=== PATIENT | female | born 1935 | race Caucasian/White ===

== ENCOUNTER → 2017-10-02 | Outpatient (CLI) | payer MEDICARE, OTHER ==
[~2017-10-02] MED LIST: ASPIRIN81 M3 PO; CALM MAG SUPPLEMENT PO; D-MANNOSE PO; MAGNESIUM250 MG PO; METROGEL60 GM TP; PROBIOTIC & AC1 EACH PO; RESTASIS1 EACH OP; VITAMIN B-121000 MCG PO; VITAMIN C PO; Z ACIDOPHILUS PO; Z CRANBERRY PO; Z NIACIN PO; Z.0.CALTRATE 600 W1 PO; Z.0.CELEXA20 MG PO; Z.0.EVISTA60 MG PO; Z.0.LEVOXYL25 MCG PO; Z.0.MACROBID 100 M10 PO; Z.0.MULTIVITAMINS1 E; Z.0.VESICARE5 MG PO; Z.6.FISH OIL 1,0001 PO
--- NOTE | 2017-10-02 10:49 | Diagnostic Imaging Report ---
PROCEDURE:X-RAY FACIAL BONES, COMPLETE COMPARISON:None. INDICATIONS:FALL, RIGHT EYE BRUISED , SWOLLEN MONDAY FINDINGS: No acute, displaced fracture or dislocation. No paranasal sinus opacification or air-fluid levels. Mastoid air cells are well aerated. Extensive dental hardware. CONCLUSION: no displaced fracture or paranasal sinus air fluid levels. Maxillofacial CT is more sensitive for detection of occult fractures and is suggested for further evaluation if clinically warranted. Dictated by: Gavin Yeboah M.D. on 10/02/2017 at 10:50 Electronically approved by: Gavin Yeboah M.D. on 10/02/2017 at 10:50
--- NOTE | 2017-10-02 10:51 | Diagnostic Imaging Report ---
PROCEDURE:X-RAY RIGHT WRIST, COMPLETE COMPARISON:None. INDICATIONS:FALL MONDAY, RIGHT WRIST PAIN FINDINGS: No acute, displaced fracture or dislocation. Appropriate alignment between the distal radius, lunate, and capitate is maintained on the lateral radiograph. Joint spaces are well-maintained. Soft tissues unremarkable. CONCLUSION: No acute osseous abnormality. Dictated by: Gavin Yeboah M.D. on 10/02/2017 at 10:52 Electronically approved by: Gavin Yeboah M.D. on 10/02/2017 at 10:52
== END ==
LOC: RAD 09:59
PROVIDERS: ATTEND Family Medicine
DX: G89.11 Acute pain due to trauma (principal); Z91.81 History of falling
CPT/HCPCS: 70150

== ENCOUNTER → 2018-02-16 | Outpatient (RCR) | payer MEDICARE, OTHER | LOC: PT 01-17 13:07 | PROVIDERS: ATTEND Specialist | DX: M70.62 Trochanteric bursitis, left hip (principal); M62.81 Muscle weakness (generalized) | CPT/HCPCS: 97110 ×13; 97162; G8981 ×2; G8982 ×2 ==

== ENCOUNTER 2018-02-23 09:00 | Outpatient (RCR) | payer MEDICARE, OTHER | END 2018-03-18 | LOC: PT 09:00 | PROVIDERS: ATTEND Specialist | DX: M70.62 Trochanteric bursitis, left hip (principal); M62.81 Muscle weakness (generalized) ==

== ENCOUNTER → 2018-09-18 | Outpatient (CLI) | payer MEDICARE, OTHER ==
--- NOTE | 2018-09-18 15:07 | Diagnostic Imaging Report ---
Exam: Right hand 3 views History: Right hand pain Comparison: None. Findings: The bones are diffusely osteopenic. No acute, displaced fracture or dislocation. Appropriate alignment between the distal radius, lunate, and capitate is maintained on the lateral radiograph. Scattered foci of joint space narrowing and marginal osteophytosis involving the interphalangeal joints. Soft tissues are unremarkable. Impression: No acute osseous abnormality. Signed by: Dr. Gavin Yeboah M.D. on 09/18/2018 3:04 PM
--- NOTE | 2018-09-18 15:11 | Diagnostic Imaging Report ---
Examination: Single AP view of the chest. Left rib radiographs. COMPARISON: None. INDICATION: Pleural pain DISCUSSION: Chest: The lungs are well-inflated and without focal consolidation, pleural effusion, or pneumothorax. Tortuous thoracic aorta with atherosclerotic calcification. Normal heart size without overt pulmonary edema. 8 mm noncalcified nodule in the left midlung. Ribs: No displaced rib fracture or osseous destructive lesions. IMPRESSION: No displaced rib fracture or pneumothorax. 8 mm left midlung pulmonary nodule should be further evaluated by CT scan of the chest without contrast in the absence of prior chest radiographs for comparison purposes. Signed by: Dr. Gavin Yeboah M.D. on 09/18/2018 3:07 PM
--- NOTE | 2018-09-18 15:13 | Diagnostic Imaging Report ---
Examination: Facial bones, complete. Clinical indication: Headache. Comparison examination: None available. Discussion: No displaced fracture or dislocation. Paranasal sinuses and mastoid air cells are well aerated. Hearing aids project over the temporal bones on the lateral skull radiograph. Multiple metallic dental artifacts limit evaluation of the maxilla and mandible. Impression: No radiographic findings of acute sinusitis. Maxillofacial CT is more sensitive for evaluation of paranasal sinus disease and should be considered for further evaluation if clinically warranted. Signed by: Dr. Gavin Yeboah M.D. on 09/18/2018 3:10 PM
== END ==
LOC: RAD 13:04
PROVIDERS: ATTEND Internal Medicine
DX: M79.641 Pain in right hand (principal); R51 Headache; R07.81 Pleurodynia; Z91.81 History of falling
CPT/HCPCS: 70150; 71101

== ENCOUNTER → 2018-09-21 | Outpatient (CLI) | payer MEDICARE, OTHER ==
--- NOTE | 2018-09-21 08:38 | Diagnostic Imaging Report ---
EXAMINATION: CT scan of the chest without contrast. TECHNIQUE: Spiral CT images of the chest were performed from the lung apices to the level of the adrenal glands. No intravenous contrast was administered per referring physician request. Coronal and sagittal reformatted images were obtained. COMPARISON: Rib radiographs 09/18/2018 CLINICAL HISTORY:Pulmonary nodule DISCUSSION: ABSENCE OF INTRAVENOUS CONTRAST DECREASES SENSITIVITY FOR DETECTION OF FOCAL LESIONS AND VASCULAR PATHOLOGY. LINES/TUBES: None. LUNGS AND AIRWAYS: Solid, lobulated 8 mm nodule in the left upper lobe corresponding to the abnormality identified on the comparison rib radiographs. Slightly superior to this, there is a mixed solid and groundglass nodule measuring 5 mm as seen on series 3 image 43. Small air-filled cyst in the right lower lobe. Minimal biapical pleural-parenchymal scar. Focal linear calcific scar in the lateral segment of the left lower lobe. No additional nodules, consolidations, gross fibrotic change, or bronchiectasis. PLEURA: No pneumothorax or pleural effusions. HEART AND MEDIASTINUM: Coarse calcification in the right lobe of the thyroid. No ectasia or aneurysmal dilatation of the thoracic aorta. Atherosclerotic calcification of the thoracic aorta, great vessel origins, left anterior descending coronary artery, and right coronary artery. Normal heart size without pericardial effusion. LYMPH NODES: No axillary, hilar, or mediastinal lymphadenopathy. ABDOMEN: Visualized portions of the liver, spleen, pancreas, adrenals, and kidneys are grossly unremarkable. BONES AND SOFT TISSUES: No focal soft tissue abnormalities. No destructive osseous lesions. Mild degenerative disc changes of the lower cervical and thoracic spine. IMPRESSION: 8 mm lobulated solid left upper lobe nodule without internal calcifications corresponds to the abnormality identified on comparison chest radiograph. Additional 5 mm mixed solid and groundglass nodule also within the left upper lobe. A follow-up CT scan of the chest without contrast in 6-12 months is suggested to document stability or resolution of above nodules per Fleischner Society 2017 guidelines. Atherosclerotic vascular disease. Signed by: Dr. Gavin Yeboah M.D. on 09/21/2018 8:34 AM
== END ==
LOC: CT 07:29
PROVIDERS: ATTEND Internal Medicine
DX: R91.1 Solitary pulmonary nodule (principal)
CPT/HCPCS: 71250

== ENCOUNTER → 2018-11-19 | Day surgery (SDC) | payer MEDICARE, OTHER ==
[2018-11-15 15:46] LABS: BASOPHILS % 0.5 % (0.0-1.0); EOSINOPHILS # (AUTO) 0.1 (0.0-0.4); EOSINOPHILS % 0.9 % (0.0-6.0); HEMATOCRIT 38.4 % (34.2-44.1); HEMOGLOBIN 13.1 g/dL (12.0-16.0); LYMPHOCYTES # (AUTO) 1.1 (1.0-3.2); LYMPHOCYTES % 17.4 % (18.0-39.1); MEAN CORPUSCULAR HGB CONC 34.1 g/dL (31-35); MEAN CORPUSCULAR VOLUME 85.1 fL (81-99); MONOCYTES # (AUTO) 0.4 (0.2-0.8); MONOCYTES % 6.6 % (4.4-11.3); NEUTROPHILS # (AUTO) 4.9 (2.1-6.9); NEUTROPHILS % 74.3 % (38.7-80.0); PLATELET COUNT 245 x10e3/uL (140-360); RED BLOOD COUNT 4.51 x10e6/uL (3.6-5.1); RED CELL DISTRIBUTION WIDTH 12.3 % (11.7-14.4)
[~2018-11-19] MED LIST changes: +CALCIUM500 MG PO; +DETROL LA4 MG PO; +FISH OIL PO; +HYDROXYCHLOROQ200 MG PO; +LIDOCAINE HCL 2% LOCAL INJ 5 ML SDV VIAL INJ ONE; +MACROBID 100 M100 MG PO; +MELOXICAM7.5 MG PO; +PROPOFOL IV EMULSION 10 MG/ML 20 ML VIAL ONE; +VIT C PO; +VIT D3 PO
--- OUTSIDE RECORDS SUMMARY | 2018-11-19 10:54 | XMS REPORT ---
Author Author [facility] Address Unknown Phone Unavailable Care Team Providers Care Brands Editor Name Role Phone GENESIS GARCIA Unavailable Unavailable HACKETT, RACHELE Unavailable Unavailable HAMPEL, LEONORA Unavailable Unavailable Problems This patient has no known problems. Allergies, Adverse Reactions, Alerts This patient has no known allergies or adverse reactions. Medications This patient has no known medications. Results Test Description Test Time Test Comments Text Results Atomic Results Result Comments SCR MAMM BILATERAL GINNY CAD DIGITAL 2018-09-25 12:46:22 - SCR MAMM BILATERAL GINNY CAD DIGITALBILATERAL DIGITAL SCREENING MAMMOGRAM 3D/2D WITH CAD: 09/25/2018CLINICAL: Asymptomatic. Digital breast tomosynthesis was performed in addition to routine CC and MLO views. Current mammographic images were evaluated by either a [employer] M-Vu or a i[employer] ImageChecker CAD (computer aided detection system). Comparison is made to exams dated 08/25/2017 mammogram, 2016 mammogram, and 08/19/2015 mammogram - [facility]. There are scattered fibroglandular tissues in both breasts. No suspicious mass, architectural distortion, malignant type calcification, or lymph node abnormality detected. Breast architecture is stable compared to prior exams.IMPRESSION: NEGATIVEThere is no mammographic evidence of malignancy. Resume annual screening mammography in one year. Kelsie Melgar M.D. dm/:09/25/2018 12:46:22 Modern Languages Professor: Kymberly Chiu , [facility] sent: BIRADS 1-2 Normal Mammogram BI-RADS: [address] CHEST WO 2018-09-21 08:23:[address] [address] Patient Name: AFROOQ UGARTE MR #: [id number] : 1935 Age/Sex: 83/F Req #: [id number] Adm Physician: Ordered by: GENESIS GARCIA MD Report #: [id number] Location: CT Room/Bed: Procedure: [id number] CT/CT CHEST WO Exam Date: 09/21/18 Exam Time: 0750 REPORT STATUS: Signed EXAMINATION: CT scan of the chest without contrast. TECHNIQUE: Spiral CT images of the chest were performed from the lung apices to the level of the adrenal glands. No intravenous contrast was administered per referring physician request. Coronal and sagittal reformatted images were obtained. COMPARISON: Rib radiographs 09/18/2018 CLINICAL HISTORY:Pulmonary nodule DISCUSSION: ABSENCE OF INTRAVENOUS CONTRAST DECREASES SENSITIVITY FOR DETECTION OF FOCAL LESIONS AND VASCULAR PATHOLOGY. LINES/TUBES: None. LUNGS AND AIRWAYS: Solid, lobulated 8 mm nodule in the left upper lobe corresponding to the abnormality identified on the comparison rib radiographs. Slightly superior to this, there is a mixed solid and groundglass nodule measuring 5 mm as seen on series 3 image 43. Small air- filled cyst in the right lower lobe. Minimal biapical pleural-parenchymal scar. Focal linear calcific scar in the lateral segment of the left lower lobe. No additional nodules, consolidations, gross fibrotic change, or bronchiectasis. PLEURA: No pneumothorax or pleural effusions. HEART AND MEDIASTINUM: Coarse calcification in the right lobe of the thyroid. No ectasia or aneurysmal dilatation of the thoracic aorta. Atherosclerotic calcification of the thoracic aorta, great vessel origins, left anterior descending coronary artery, and right coronary artery. Normal heart size without pericardial effusion. LYMPH NODES: No axillary, hilar, or mediastinal lymphadenopathy. ABDOMEN: Visualized portions of the liver, spleen, pancreas, adrenals, and kidneys are grossly unremarkable. BONES AND SOFT TISSUES: No focal soft tissue abnormalities. No destructive osseous lesions. Mild degenerative disc changes of the lower cervical and thoracic spine. IMPRESSION: 8 mm lobulated solid left upper lobe nodule without internal calcifications corresponds to the abnormality identified on comparison chest radiograph. Additional 5 mm mixed solid and groundglass nodule also within the left upper lobe. A follow-up CT scan of the chest without contrast in 6-12 months is suggested to document stability or resolution of above nodules per Fleischner Society 2017 guidelines. Athe rosclerotic vascular disease. Signed by: Dr. Naima Guadalupe M.D. on 09/21/2018 8:34 AM Dictated By: NAIMA GUADALUPE MD 3 Transcribed By: JONNA on 09/21/18833 COPY TO: GENESIS GARCIA MD FACIAL BONES COMP 2018-09-18 15:08:00 [place] [address] Patient Name: FAROOQ UGARTE MR #: [id number] : 1935 Age/Sex: 83/F Req #: [id number] Adm Physician: Ordered by: GENESIS GARCIA MD Report #: [id number] Location: [facility] Room/Bed: Procedure: [id number] DX/FACIAL BONES COMP Exam Date: 09/18/18 Exam Time: 1330 REPORT STATUS: Signed Examination: Facial bones, complete. Clinical indication: Headache. Comparison examination: None available. Discussion: No displaced fracture or dislocation. Paranasal sinuses and mastoid air cells are well aerated. Hearing aids project over the temporal bones on the lateral skull radiograph. Multiple metallic dental artifacts limit evaluation of the maxilla and mandible. Impression: No radiographic findings of acute sinusitis. Maxillofacial CT is more sensitive for evaluation of paranasal sinus disease and should be considered for further evaluation if clinically warranted. Signed by: Dr. Naima Guadalupe M.D. on 09/18/2018 3:10 PM Dictated By: NAIMA GUADALUPE MD 1510 Transcribed By: JONNA on 09/18/18 1510 COPY TO: GENESIS GARCIA MD RIBS UNILAT W/CXR 2018-09-18 15:04:00 [place] [address] Patient Name: FAROOQ UGARTE MR #: [id number] : 1935 Age/Sex: 83/F Req #: [id number] Adm Physician: Ordered by: GENEISS GARCIA MD Report #: [id number] Location: [facility] Room/Bed: Procedure: [id number] DX/RIBS UNILAT W/CXR Exam Date: 09/18/18 Exam Time: 1330 REPORT STATUS: Signed Examination: Single AP view of the chest. Left rib radiogra phs. COMPARISON: None. INDICATION: Pleural pain DISCUSSION: Chest: The lungs are well-inflated and without focal consolidation, pleural effusion, or pneumothorax. Tortuous thoracic aorta with atherosclerotic calcification. Normal heart size without overt pulmonary edema. 8 mm noncalcified nodule in the left midlung. Ribs: No displaced rib fracture or osseous destructive lesions. IMPRESSION: No displaced rib fracture or pneumothorax. 8 mm left midlung pulmonary nodule should be further evaluated by CT scan of the chest without contrast in the absence of prior chest radiographs for comparison purposes. Signed by: Dr. Naima Guadalupe M.D. on 09/18/2018 3:07 PM Dictated By: NAIMA GUADALUPE MD 1504 Transcribed By: JONNA on 09/18/18 1507 COPY TO: GENESIS GARCIA MD HAND 3+ VIEWS RIGHT 2018-09-18 15:02:00 [place] [address] Patient Name: FAROOQ UGARTE MR #: [id number] : 1935 Age/Sex: 83/F Req #: [id number] Adm Physician: Ordered by: GENESIS GARCIA MD Report #: [id number] Location: [facility] Room/Bed: Procedure: [id number] DX/HAND 3+ VIEWS RIGHT Exam Date: 09/18/18 Exam Time: 1330 REPORT STATUS: Signed Exam: Right hand 3 views History: Right hand pain Comparison: None. Findings: The bones are diffusely osteopenic. No acute, displaced fracture or dislocation. Appropriate alignment between the distal radius, lunate, and capitate is maintained on the lateral radiograph. Scattered foci of joint space narrowing and marginal osteophytosis involving the interphalangeal joints. Soft tissues are unremarkable. Impression: No acute osseous abnormality. Signed by: Dr. Naima Guadalupe M.D. on 09/18/2018 3:04 PM Dictated By: NAIMA GUADALUPE MD 1504 Transcr ibed By: JONNA on 09/18/18 1504 COPY TO: GENESIS GARCIA MD FACIAL BONES COMP [place] [address] Patient Name: FAROOQ UGARTE MR #: [id number] : 1935 Age/Sex: 82/F Req #: [id number] Adm Physician: Ordered by: RACHELE HACKETT MD Report #: [id number] Location: [facility] Room/Bed: Procedure: [id number] DX/FACIAL BONES COMP Exam Date: Exam Time: REPORT STATUS: Signed PROCEDURE: X-RAY FACIAL BONES, COMPLETE COMPARISON: None. INDICATIONS: FALL, RIGHT EYE BRUISED , SWOLLEN MONDAY FINDINGS: No acute, displaced fracture or dislocation. No paranasal sinus opacification or air- fluid levels. Mastoid air cells are well aerated. Extensive dental hardware. CONCLUSION: no displaced fracture or paranasal sinus air fluid levels. Maxillofacial CT is more sensitive for detection of occult fractures and is suggested for further evaluation if clinically warranted. Dictated by: Naima Guadalupe M.D. on 10/02/2017 at 10:50 Electronically approved by: Naima Guadalupe M.D. on 10/02/2017 at 10:50 Dictated By: NAIMA GUADALUPE MD 105 Transcribed By: AMALIA on 10/02/17 1050 COPY TO: RACHELE HACKETT MD WRIST COMPLETE RIGHT [place] [address] Patient Name: FAROOQ UGARTE MR #: [id number] : 1935 Age/Sex: 82/F Req #: [id number] Adm Physician: Ordered by: RACHELE HACKETT MD Report #: [id number] Location: [facility] Room/Bed: Procedure: [id number] DX/WRIST COMPLETE RIGHT Exam Date: Exam Time: REPORT STATUS: Signed PROCEDURE: X-RAY RIGHT WRIST, COMPLETE COMPARISON: None. INDICATIONS: FALL MONDAY, RIGHT WRIST PAIN FINDINGS: No acute, displaced fracture or dislocation. Appropriate alignment between the distal radius, lunate, and capitate is maintained on the lateral radiograph. Joint spaces are well-maintained. Soft tissues unremarkable. CONCLUSION: No acute osseous abnormality. Dictated by: Naima Guadalupe M.D. on 10/02/2017 at 10:52 Electronically approved by: Naima Guadalupe M.D. on 10/02/2017 at 10:52 Dictated By: NAIMA GUADALUPE MD 105 Transcribed By: AMALIA on 10/02/17 1052 COPY TO: RACHELE HACKETT MD PELVIS AP 1-2 VIEWS [place] [address] Patient Name: FAROOQ UGARTE MR #: [id number] : 1935 Age/Sex: 81/F Req #: [id number] Adm Physician: Ordered by: LEONORA TADEO MD Report #: [id number] Location: [facility] Room/Bed: Procedure: [id number] DX/PELVIS AP 1-2 VIEWS Exam Date: 06/01/17 Exam Time: 1520 REPORT STATUS: Signed PROCEDURE: X-RAY PELVIS, AP VIEW COMPARISON: None. INDICATIONS: UNCONTROLLABLE BLADDER FOR 1 YEAR FINDINGS: There are no fractures, dislocations, lytic or blastic lesions. The bones are well- mineralized. The soft-tissues are unremarkable. A battery pack with lead projects over the left pelvis. CONCLUSION: Normal pelvic radiograph. Dictated by: Dionisio Abreu M.D. on 06/01/2017 at 15:47 Electronically approved by: Dionisio Abreu M.D. on 06/01/2017 at 15:47 Dictated By: DIONISIO ABREU MD 1547 Transcribed By: AMALIA on 06/01/17 1547 COPY TO: LEONORA TADEO MD SACRUM X-RAY [place] [address] Patient Name: FAROOQ UGARTE MR #: [id number] : 1935 Age/Sex: 81/F Req #: [id number] [facility] Physician: Ordered by: LEONORA TADEO MD Report #: [id number] Location: [facility] Room/Bed: Procedure: [id number] DX/SACRUM X-RAY Exam Date: 06/01/17 Exam Time: 1520 REPORT STATUS: Signed PROCEDURE: SACRUM X-RAY INDICATION: Uncontrolled bladder for 1 year COMPARISON: None. FINDINGS: No fractures or dislocations. Joint spaces are preserved. A battery pack with lead projects over the posterior left pelvis. Vascular calcifications. CONCLUSION: No acute osseous abnormalities. Dictated by: Dionisio Abreu M.D. on 06/01/2017 at 15:50 Electronically approved by: Dionisio Abreu M.D. on 06/01/2017 at 15:50 Dictated By: DIONISIO ABREU MD 6029 Transcribed By: AMALIA on 06/01/17 494 COPY TO: LEONORA TADEO MD
[2018-11-19 15:55] VITALS: BP 129/68
--- NOTE | 2018-11-19 18:58 | Operative Report ---
DATE OF PROCEDURE: 11/19/2018 SURGEON: Solitario Mendoza MD PROCEDURE: Esophagogastroduodenoscopy with biopsies. INDICATIONS FOR EGD: Upper abdominal pain. MEDICATIONS: The patient was done under MAC, please see anesthesiologist's note. PROCEDURE IN DETAIL: With the patient in left lateral decubitus position, a flexible fiberoptic Olympus gastroscope was introduced into the esophagus under direct visualization without any difficulty. There was some patchy erythema noted in distal esophagus. The scope was then advanced with ease into the stomach. Mucosa overlying the antrum and the body revealed some patchy erythema and [id number] edema and biopsies were obtained, sent to stain for H pylori. Some hyperplastic appearing polyps, minute were noted in the body of the stomach and somewhat partially excised with cold biopsy forceps. The pylorus was of normal contour and shape, it was intubated with ease and the scope was advanced all the way to the second portion of the duodenum. Biopsies were obtained from the second portion and duodenal bulb to rule out sprue. A minute nodule was noted in the posterior wall of the duodenal bulb and that was biopsied. The scope was then withdrawn back into the stomach and retroflexed, mucosa overlying the fundus and cardia appeared to be within normal limits. The scope was then straightened out, it was subsequently withdrawn. The patient tolerated the procedure well. IMPRESSION: 1. Mild distal esophagitis. 2. Gastritis, biopsied. Biopsies sent to stain for Helicobacter pylori. 3. Gastric polyps, minute, hyperplastic appearing, body, some partially excised with the cold biopsy forceps. 4. Duodenal bulb nodule, biopsied. 5. Rule out sprue. PLAN: Follow up histology. Initiate Protonix 40 mg one p.o. q.a.m. a.c. Solitario Mendoza MD [facility] [place][id number] cc: Gary Samuel MD
== END | disposition home or self-care (01) ==
LOC: OR 10:47
PROVIDERS: ATTEND Internal Medicine Gastroenterology
DX: K29.70 Gastritis, unspecified, without bleeding (principal); K31.7 Polyp of stomach and duodenum; K29.80 Duodenitis without bleeding; K21.0 Gastro-esophageal reflux disease with esophagitis; M32.9 Systemic lupus erythematosus, unspecified; E03.9 Hypothyroidism, unspecified; R03.0 Elevated blood-pressure reading, without diagnosis of hypertension; Z88.0 Allergy status to penicillin; Z88.2 Allergy status to sulfonamides; Z01.810 Encounter for preprocedural cardiovascular examination; Z01.812 Encounter for preprocedural laboratory examination
CPT/HCPCS: 36415; 43239; 85025; 88305; 88312; 93005; J2001; J2704

== ENCOUNTER → 2019-02-05 | Outpatient (CLI) | payer MEDICARE, OTHER ==
[~2019-02-05] MED LIST changes: +L THYROXINE PO; -LIDOCAINE HCL 2% LOCAL INJ 5 ML SDV VIAL INJ ONE; -PROPOFOL IV EMULSION 10 MG/ML 20 ML VIAL ONE
--- NOTE | 2019-02-05 15:46 | Diagnostic Imaging Report ---
Abdomen, 1 view. History: UTI. Findings: Air is scattered throughout nondilated small and large bowel. There are no masses or abnormal calcifications. The osseous structures are intact. Stimulator device is noted in the left pelvis. IMPRESSION: Non-specific bowel gas pattern. Signed by: Jose Luis Menard on 02/05/2019 3:43 PM
--- NOTE | 2019-02-05 16:12 | Diagnostic Imaging Report ---
Renal ultrasound, 02/05/2019. History: UTI. Discussion: Transverse and longitudinal images of the kidneys were obtained demonstrating normal renal sizes and echogenicities. There is no evidence of hydronephrosis, mass, or renal calculus. The right kidney measures 10.7 cm and the left kidney measures 9.8 cm in length. Renal cortex measures 1.9 and 1.5 cm respectively. The urinary bladder is unremarkable. Bilateral ureteral jets are identified. Bladder volume measures 54 mL. There is no evidence of free fluid. IMPRESSION: Normal renal ultrasound. No evidence of nephrolithiasis or hydronephrosis. Signed by: Jose Luis Menard on 02/05/2019 4:09 PM
== END ==
LOC: US 14:30
PROVIDERS: ATTEND Urology
DX: N39.0 Urinary tract infection, site not specified (principal)
CPT/HCPCS: 74018; 76770

== ENCOUNTER → 2019-03-08 | Day surgery (SDC) | payer MEDICARE, OTHER ==
--- NOTE | 2019-03-04 16:27 | Diagnostic Imaging Report ---
EXAMINATION: CHEST 2 VIEWS INDICATION: Pre-operative COMPARISON: Chest CT of 09/21/2018 FINDINGS: LINES/TUBES:None LUNGS:The lungs are well-inflated. A nodular opacity in the left midlung zone likely corresponds to the left upper lobe nodule previously seen on the CT of 09/21/2018 and now measures up to 10 mm. A separate 15 mm nodular opacity at the left lung base may represent a true pulmonary nodule or overlapping rib shadow. PLEURA:No pleural effusion or pneumothorax. MEDIASTINUM:The cardiomediastinal silhouette appears normal in size and shape. Atherosclerotic calcifications of the thoracic aorta. BONES/SOFT TISSUES:No acute osseous injury. ABDOMEN:No free air under the diaphragm. IMPRESSION: No focal pneumonia or pulmonary edema. Left mid lung nodular opacity measuring up to 10 mm likely corresponds with the left upper lobe nodule seen on the prior CT of 09/21/2018 and has likely increased in size. Follow-up chest CT on a nonemergent basis is recommended to assess for interval increase in size. A separate 15 mm nodular opacity at the left lung base may represent a true pulmonary nodule or alternatively overlapping rib shadow. Signed by: Shelly Black MD on 03/04/2019 4:24 PM
[2019-03-04 16:32] LABS: BASOPHILS % 0.3 % (0.0-1.0); EOSINOPHILS # (AUTO) 0.1 (0.0-0.4); HEMATOCRIT 40.1 % (34.2-44.1); HEMOGLOBIN 13.5 g/dL (12.0-16.0); LYMPHOCYTES # (AUTO) 1.5 (1.0-3.2); LYMPHOCYTES % 19.9 % (18.0-39.1); MEAN CORPUSCULAR HEMOGLOBIN 28.9 pg (28-32); MEAN CORPUSCULAR HGB CONC 33.7 g/dL (31-35); MEAN CORPUSCULAR VOLUME 85.9 fL (81-99); MONOCYTES # (AUTO) 0.5 (0.2-0.8); MONOCYTES % 7.4 % (4.4-11.3); NEUTROPHILS # (AUTO) 5.2 (2.1-6.9); NEUTROPHILS % 71.1 % (38.7-80.0); PLATELET COUNT 240 x10e3/uL (140-360); RED BLOOD COUNT 4.67 x10e6/uL (3.6-5.1); RED CELL DISTRIBUTION WIDTH 12.2 % (11.7-14.4)
[~2019-03-08] MED LIST changes: +B&O 60MG R/S 60 MG SUPP PR ONE; +CEFTRIAXONE SOD 1 GM/NS 50 ML 50 ML IV ONE; +DEXAMETHASONE SOD PHOS INJ 4 MG/ML VIAL ONE; +IOPAMIDOL 610MG/1ML 300 MG/ML VIAL IV ONE; +LIDOCAINE HCL 2% LOCAL INJ 5 ML SDV VIAL INJ ONE; +ONDANSETRON HCL INJ 2MG/ML 2ML 2 MG/ML VIAL ONE; +PROPOFOL IV EMULSION 10 MG/ML 20 ML VIAL ONE; +SEVOFLURANE INHAL SOLN 250 ML PEN BTL ONE
[2019-03-08 09:00] VITALS: BP 151/79
--- NOTE | 2019-04-16 06:50 | Operative Report ---
DATE OF PROCEDURE: 03/08/2019 SURGEON: Hernan Jorge MD PREOPERATIVE DIAGNOSES: 1. Interstitial cystitis. 2. Urinary tract infections. 3. Hematuria. POSTOPERATIVE DIAGNOSES: 1. Interstitial cystitis. 2. Urinary tract infections. 3. Hematuria. 4. Grade 1 cystocele. 5. Grade 1 rectocele. 6. Atrophic (senile) vaginitis. OPERATION PERFORMED: 1. Cystourethroscopy with bilateral ureteral catheterization and retrograde ureteropyelography (separate procedure performed for diagnosis of the urinary tract infections and hematuria. 2. Interpretation of retrograde ureteropyelography. 3. Cystourethroscopy with hydrodistention (separate procedure performed for the interstitial cystitis). 4. Pelvic examination under anesthesia. ANESTHESIA: General. COMPLICATIONS: None. CLINICAL SUMMARY: Priscilla Fish is an 83-year-old woman with overactive bladder, who has an InterStim in place. The patient has the above preoperative diagnoses. She is brought for the above procedures. She is aware of the risks of bleeding, infection, injury to adjacent structures, need for additional procedures and elected to proceed. OPERATIVE PROCEDURE IN DETAIL: Informed consent was verified. Priscilla Fish was properly identified, taken to the operating room, placed on a cystoscopy table in supine position. Anesthesia was uneventfully begun. The patient was then carefully gently repositioned in the dorsal lithotomy position with all pressure points well padded. Her genitalia were prepared and draped in usual sterile fashion. The cystoscope sheath with obturator in place, was atraumatically inserted into the patient's urethra and the bladder was drained. Panendoscopy revealed a few small erythematous patches, but no suspicious lesions, no tumors, no stones. Normally positioned and configured. Ureteral orifices were identified. An 8-Burmese catheter was used to cannulate each ureter and a retrograde ureteropyelograms were performed. Interpretation of retrograde ureteropyelography contrast was instilled in retrograde fashion bilaterally. There were no tumors, no stones, and no diverticula. Unobstructed drainage was observed fluoroscopically. A left-sided InterStim lead seemed to be in an appropriate configuration in this plain. Hydrodistention of the bladder was then carried out exactly 80 cm of water height and held in place for exactly 2 minutes by the clock. This revealed a bladder capacity under anesthesia of only 625 mL. An endoscopy following hydrodistention revealed fairly significant change in the erythema. The erythema was worsened and some glomerulations were noted. The patient's bladder was drained. Cystoscope was withdrawn. Pelvic examination revealed a grade 1 cystocele, grade 1 rectocele. There was atrophic (senile) vaginitis. No abnormal palpable pelvic masses could be appreciated. There were no obvious mucosal lesions. The patient was then uneventfully reversed from anesthesia and taken to recovery room in stable condition. There were no complications to the procedure. She tolerated the procedure well. PLANS: Plans will be to monitor the patient's symptomatology. We will plan to evaluate her InterStim implant on an ongoing basis and of course ongoing urological followup is must. Hernan Jorge MD [place]/[facility] /[id number] cc: Gary Samuel MD
== END | disposition home or self-care (01) ==
LOC: OR 05:41
PROVIDERS: ATTEND Urology
DX: N30.10 Interstitial cystitis (chronic) without hematuria (principal); N81.10 Cystocele, unspecified; N81.6 Rectocele; N95.2 Postmenopausal atrophic vaginitis; N32.81 Overactive bladder; R31.9 Hematuria, unspecified; N27.0 Small kidney, unilateral; M32.9 Systemic lupus erythematosus, unspecified; I45.10 Unspecified right bundle-branch block; I49.1 Atrial premature depolarization; M19.90 Unspecified osteoarthritis, unspecified site; F41.9 Anxiety disorder, unspecified; Z88.0 Allergy status to penicillin; Z88.2 Allergy status to sulfonamides; Z01.810 Encounter for preprocedural cardiovascular examination; Z01.812 Encounter for preprocedural laboratory examination; Z01.818 Encounter for other preprocedural examination
CPT/HCPCS: 36415; 52260; 71046; 74420; 85025; 93005; C1758; J0696; J1100; J2001; J2405; J2704; Q9967

== ENCOUNTER → 2019-03-12 | Outpatient (CLI) | payer MEDICARE, OTHER ==
[~2019-03-12] MED LIST changes: -B&O 60MG R/S 60 MG SUPP PR ONE; -CEFTRIAXONE SOD 1 GM/NS 50 ML 50 ML IV ONE; -DEXAMETHASONE SOD PHOS INJ 4 MG/ML VIAL ONE; -IOPAMIDOL 610MG/1ML 300 MG/ML VIAL IV ONE; -LIDOCAINE HCL 2% LOCAL INJ 5 ML SDV VIAL INJ ONE; -ONDANSETRON HCL INJ 2MG/ML 2ML 2 MG/ML VIAL ONE; -PROPOFOL IV EMULSION 10 MG/ML 20 ML VIAL ONE; -SEVOFLURANE INHAL SOLN 250 ML PEN BTL ONE
--- NOTE | 2019-03-12 16:21 | Diagnostic Imaging Report ---
EXAMINATION: FINGER RIGHT INDICATION: Trauma COMPARISON: None FINDINGS: No acute fracture or dislocation. Mild right thumb soft tissue swelling. Cortical irregularity at the base of the fourth and fifth metacarpals may represent healed remote fracture. IMPRESSION: Mild right thumb soft tissue swelling with no underlying acute osseous injury. Signed by: Shelly Black MD on 03/12/2019 4:17 PM
== END ==
LOC: RAD 15:23
PROVIDERS: ATTEND Internal Medicine
DX: S60.931A Unspecified superficial injury of right thumb, initial encounter (principal)

== ENCOUNTER → 2020-10-02 | Outpatient (CLI) | payer MEDICARE, OTHER | LOC: US 12:26 | PROVIDERS: ATTEND Internal Medicine | DX: R10.9 Unspecified abdominal pain (principal); R10.2 Pelvic and perineal pain | CPT/HCPCS: 76700; 76856 ==

== ENCOUNTER → 2021-02-05 | Outpatient (CLI) | payer MEDICARE, OTHER | LOC: US 11:48 | PROVIDERS: ATTEND Urology | DX: N39.0 Urinary tract infection, site not specified (principal); W19.XXXA Unspecified fall, initial encounter | CPT/HCPCS: 71101; 74018; 76770; 76857 ==

== ENCOUNTER → 2022-01-24 | Outpatient (CLI) | payer MEDICARE, OTHER | LOC: RAD 12:19 | PROVIDERS: ATTEND Internal Medicine | DX: S20.211A Contusion of right front wall of thorax, initial encounter (principal); R29.6 Repeated falls | CPT/HCPCS: 71046 ==